=== PATIENT | female | born 1930 | race Caucasian/White ===

== ENCOUNTER 2016-12-06 15:26 | Inpatient (IN) | payer MEDICARE, OTHER ==
[~2016-12-06] VITALS: Ht 142.2 cm; Wt 47.5 kg
[~2016-12-06 15:26] MED LIST: AMLO5TAB2 PO; ASPI1TAB73 PO; CHOL1CAP6 PO; CYAN1TAB24 PO; HYDR-3533 PO
[2016-12-12 06:05] VITALS: BP 190/108; PULSE 98; RESP 18; TEMP 98.1; O2SAT 97
[2016-12-12] MEDS ORDERED: METOPROLOL TARTRATE 25 MG TAB PO PRN (06:45)
[2016-12-12] MEDS ORDERED: VANCOMYCIN 1,000 MG/NS 250 ML IV SCH ×2 (06:45)
[2016-12-12] MEDS ORDERED: SODIUM CHLORID 0.9% 500 ML IV PRN (06:45)
[2016-12-12] MEDS ORDERED: POVIDONE IODINE 5% (ANTISEPSIS KIT) 4 APPLICATIONS EACH NARE PRN (06:45)
[2016-12-12] MEDS ORDERED: LACTATED RINGER'S 1000 ML IV PRN (06:45)
[2016-12-12] MEDS ORDERED: CHLORHEXIDINE GLUCONATE 2 % 1 PACK (2 CLOTHS) TOPICAL PRN (06:45)
[2016-12-12] MEDS ORDERED: INSULIN HUMAN REGULAR 1,000 UNITS/10 ML VIAL SQ PRN (06:45)
[2016-12-12] MEDS ORDERED: SODIUM CHLOR 0.9% 1000 ML INJ 1,000 ML IV SCH (06:45)
[2016-12-12] MEDS ORDERED: VANCOMYCIN HCL 1000 MG VIAL ONE (07:03)
[2016-12-12] MEDS ORDERED: BUPIVACAINE/EPINEPHRINE 0.5% 50 ML VIAL ONE (07:03)
[2016-12-12] MEDS ORDERED: THROMBIN (TOPICAL) 5,000 UNIT VIAL ONE (07:03)
[2016-12-12] MEDS ORDERED: GELFOAM SIZE 100 ONE (07:03)
[2016-12-12] MEDS ORDERED: MULTTAB67 PO (07:27)
[2016-12-12] MEDS ORDERED: CALC1TAB87 PO (07:27)
[2016-12-12] MEDS ORDERED: fentaNYL CITRATE 250 MCG/5 ML AMP ONE (08:32)
[2016-12-12] MEDS ORDERED: ARTIFICIAL TEARS OPTH OINT 3.5 APPLIC/3.5 GM TUBO ONE (08:32)
[2016-12-12] MEDS ORDERED: MIDAZOLAM HCL 2 MG/2 ML VIAL ONE (08:32)
[2016-12-12] MEDS ORDERED: ACETAMINOPHEN 1000 MG/100 ML VIAL IV ONE (08:32)
[2016-12-12] MEDS ORDERED: KETAMINE HCL 500 MG/5 ML VIAL ONE (08:41)
[2016-12-12] MEDS: NS + KCL 20 MEQ INJ 1,000 ML IV SCH ×2 (12:12→22:40)
[2016-12-12] MEDS ORDERED: ACETAMINOPHEN 325 MG TAB PO PRN (12:15)
[2016-12-12] MEDS ORDERED: MENTHOL LOZENGE BUCCAL PRN (12:15)
[2016-12-12] MEDS ORDERED: PROCHLORPERAZINE INJ 10 MG/2 ML VIAL IM PRN (12:15)
[2016-12-12] MEDS ORDERED: CYCLOBENZAPRINE HCL 10 MG TAB PO PRN (12:15)
[2016-12-12] MEDS ORDERED: ACETAMINOPHEN/HYDROcodone 325 MG/10 MG TAB PO PRN (12:15)
[2016-12-12] MEDS ORDERED: MAGNESIUM HYDROXIDE SUSP 30 ML CUP PO PRN (12:15)
[2016-12-12] MEDS ORDERED: cloNIDine HCL 0.1 MG TAB PO PRN (12:15)
[2016-12-12] MEDS ORDERED: MORPHINE SULFATE 4 MG/ML INJ IV PRN (12:15)
[2016-12-12] MEDS ORDERED: ZOLPIDEM TARTRATE 5 MG TAB PO PRN (12:15)
[2016-12-12] MEDS ORDERED: RESP: ALBUTEROL 2.5 MG/3 ML NEB (PRN) NEB (12:15)
[2016-12-12] MEDS ORDERED: SODIUM CHLORIDE 0.9% FLUSH 10 ML FLUSH IV FLUSH PRN (12:15)
[2016-12-12] MEDS ORDERED: ALUMINUM/MAGNESIUM/SIMETH 30 ML CUP PO PRN (12:15)
[2016-12-12] MEDS ORDERED: SUGAMMADEX SODIUM 200 MG/2 ML VIAL IV PUSH ONE ×2 (12:16)
--- NOTE | 2016-12-12 12:20 | PD.OP ---
Mervin Guevara MD Operative Report Date of Surgery: Dec 12, 2016 Preoperative Diagnosis: C2 type II odontoid fracture Postoperative Diagnosis: Same Procedure: Posterior cervical C1-2 autograft fusion; C1-2 sublaminar Cory cable fixation ; left iliac crest autograft harvest; HALO placement Anesthesia: Gen. endotracheal by Dru Prajapati Surgeon: Rinku Clayton M.D. Head Mixer(s): Mellisa Villanueva Operation and Findings: Following administration of general endotracheal anesthesia, vancomycin 1 g was administered intravenously and Almeida catheter placed along with sequential compression devices for DVT prophylaxis. Neck was maintained in neutral position a Chester J collar during the intubation. Bifrontal and occipital regions were then shaved and prepped with Betadine solution and infiltrated with 1% lidocaine with epinephrine solution. The halo ring was then placed and the pins tightened to 8 pounds of torque pressure. Patient was then log roll in the prone position on chest rolls on Alvino table in the halo connected to the Cutler headrest. All pressure points adequately padded and the collar was then removed. The posterior cervical occipital region was then shaved along the left iliac crest area and prepped it with the ChloraPrep and sterilely draped with Ioban and the usual draping. A lateral C-spine fluoroscopy obtained to confirm the alignment of the dens relative to the body. Posterior cervical region was then infiltrated with 0.5% Marcaine with epinephrine solution and the skin incision overlying the C1-C2 level then made extending down to the fascia and then used in a subperiosteal plane the screw attachment posterior arch of C1 and C2 spinous process and lamina detached. Cerebellar retractors were used for exposure. The inferior portion the C1 posterior arch and spare portion of the C2 spinous process and lamina were decorticated with a drill bit. A Ocry double cable wire wasn't tunneled under the C1 lamina and looped underneath the C2 spinous process. Incision over the left iliac crest was then made after infiltrating the skin with 0.5% Marcaine with epinephrine solution extending down to the fascia. The fascia and musculature attachments of the louisa were detached and cerebellar retractor used for exposure. With an osteotome a tricortical iliac crest autograft was then harvested. Gelfoam and thrombin used for hemostasis at the iliac crest harvest site and the areas and copiously irrigated with antibiotic solution. The tricortical allograft was then contoured to fit in the C1-C2 interspace and this was then locked in place with the Cory cables providing stabilization fusion at the C1-2 level. The area was then copiously irrigated with with antibiotic solution. The retractors removed and the muscle and fascia proximal using 2-0 Vicryl Sutures. 3-0 Vicryl subcuticular interrupted sutures also placed and final skin closure was with ivan. The left iliac crest region was also approximated with the 2-0 Vicryl for the fascia and then 3-0 Vicryl subcuticular stitches and then final skin closure with ivan. Sterile dressings were then applied. Patient placed in a halo vest which is secured to the halo ring with the rods and locked in place. She was turned in the supine position and extubated. Cervical spine x-ray revealed C1-2 restored alignment and good position of the construct. All sponge and needle count was correct at the end of the procedure and estimated blood loss was about 50 cc. She was then taken to recovery room in stable condition. Rinku Clayton MD Dec 12, 2016 12:20
[2016-12-12] MEDS ORDERED: DO NOT ADM ANY ANTICOAGULANT DRUGS PRN (12:24)
[2016-12-12] MEDS ORDERED: *morphine SULFATE 8 MG/ML PERIprocedure ONLY ONE (12:27)
--- NOTE | 2016-12-12 14:07 | RADRPT ---
EXAM DATE/TIME: 12/12/2016 10:37 [facility] COMPARISON: No previous studies available for comparison. INDICATIONS : Post-op C1-C2 posterior cervical fusion. MEDICAL HISTORY : None. SURGICAL HISTORY : None. ENCOUNTER: Initial ACUITY: 1 day PAIN SCORE: Non-responsive. LOCATION: neck FINDINGS: A single lateral view of the cervical spine was performed. Fixation wires have been placed across the posterior ring of C1 and spinous process of C2. C1 and C2 vertebral bodies appear satisfactory align ed. 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 CONCLUSION: Satisfactory postoperative appearance following posterior fixation at C1-2. Renaldo Bose MD on December 12, 2016 at 14:03 Board Certified Radiologist. This report was verified electronically.
[2016-12-12 16:00] VITALS: BP 126/81; PULSE 93; RESP 18; TEMP 96.3; O2SAT 90
[2016-12-12] MEDS: ACETAMINOPHEN/HYDROcodone 325 MG/10 MG TAB PO PRN ×2 (16:47→22:39)
[2016-12-12] MEDS: ONDANSETRON HCL 4 MG/2 ML VIAL IV PUSH PRN (16:47)
[2016-12-12 20:17] VITALS: BP 119/75; PULSE 101; RESP 18; TEMP 96.7; O2SAT 92
[2016-12-12] MEDS: SODIUM CHLORIDE 0.9% FLUSH 10 ML FLUSH IV FLUSH SCH (21:00)
[2016-12-12] MEDS: amLODIPine BESYLATE 5 MG TAB PO SCH (22:40)
[2016-12-12] MEDS: DOCUSATE SODIUM 100 MG CAP PO SCH (22:40)
[2016-12-13] VITALS (10 sets, daily range): BP systolic 126–164; BP diastolic 69–91; PULSE 78–95; RESP 16–18; TEMP 96.7–98.2; O2SAT 92–96
[2016-12-13] MEDS: ACETAMINOPHEN/HYDROcodone 325 MG/10 MG TAB PO PRN ×5 (04:12→20:07)
[2016-12-13] MEDS: DOCUSATE SODIUM 100 MG CAP PO SCH ×2 (08:10→20:07)
[2016-12-13] MEDS: CALCIUM/VITAMIN D 250 MG/125 U TAB PO SCH (08:10)
[2016-12-13] MEDS: MULTIVITAMIN TAB PO SCH (08:11)
[2016-12-13] MEDS: CHOLECALCIFEROL (VIT D3) 1000 UNIT TAB PO SCH (08:11)
[2016-12-13] MEDS: PANTOPRAZOLE SOD 40 MG DELAYED RELEASE TAB PO SCH (08:11)
[2016-12-13] MEDS: CYANOCOBALAMIN 1,000 MCG TAB PO SCH (08:11)
[2016-12-13] MEDS: SODIUM CHLORIDE 0.9% FLUSH 10 ML FLUSH IV FLUSH SCH ×2 (08:12→20:07)
[2016-12-13] MEDS: POLYETHYLENE GLYCOL 17 GM PKG PO SCH (08:13)
--- NOTE | 2016-12-13 09:12 | HHI.NSPN ---
(Kwame Lopez) History Chief Complaint: Pin site discomfort (Kwame Lopez) Interval History 12/13/16: Pt s/p posterior cervical C1-2 autograft fusion; C1-2 sublaminar Cory cable fixation; left iliac crest autograft harvest; HALO placement on . She is overall doing well. Complains of some pin site discomfort. States neck pain controlled. No radiculopathy or paresthesias in UEs. (Kwame Lopez) Review of Systems General: Negative for: fever, chills, insomnia Respiratory: Negative for: shortness of breath, cough, sputum Cardiovascular: Negative for: chest pain Gastrointestinal: Negative for: nausea, vomitting, diarrhea, constipation ( Kwame Lopez) Exam Results Vital Signs Date Time Temp Pulse Resp B/P Pulse Ox O2 Delivery O2 Flow Rate FiO2 12/13/16 08:25 Room Air 12/13/16 08:00 97.4 94 16 127/79 92 12/13/16 00:56 21 12/12/16 14:25 3 Intake and Output 12/12/16 12/12/16 12/13/16 08:00 16:00 00:00 Intake Total 1594 ml 1044 ml Output Total 1250 ml 500 ml Balance 344 ml 544 ml (Kwame Lopez) Physical Examination GENERAL: Patient resting comfortably in bed with Halo intact. HEAD: Pin sites clean without signs of infection. EYES: Pupils equal. Sclera non icteric. RESPIRATORY: CTA Bilaterally HEART: NSR Normal S1 and S2 ABDOMEN: Soft Positive BS SKIN: No cyanosis or erythema. Bandages dry. MUSCLE: Patient moves all 4 extremities, 5/5 strength in UEs and LEs. She states she ambulated short distance yesterday. NEUROLOGIC: Patient is awake and alert. Speech is clear and appropriate. Follows commands well. Sensation intact in extremities, comprehension is good. (Kwame Lopez) Lab, Micro, Other Results Last Impressions Cervical Spine X-Ray 12/12/16 0000 Signed Impressions: Service Date/Time: November 10:37 - CONCLUSION: Satisfactory postoperative appearance following posterior fixation at C1-2. Renaldo Bose MD 12/12/16 12/12/16 12/13/16 15:00 23:00 07:00 Intake Total 1594 ml 1044 ml 822 ml Output Total 1250 ml 500 ml 150 ml Balance 344 ml 544 ml 672 ml Intake Oral 360 ml 240 ml IV Total 94 ml 684 ml 582 ml Other 1500 ml Output Urine Total 1050 ml 500 ml 150 ml Estimated Blood Loss 200 ml # Voids 2 # Bowel Movements 0 0 (Kwame Lopez) Medical Decision Making Impression and Plan A: 86 y/o FM s/p posterior cervical C1-2 autograft fusion; C1-2 sublaminar Cory cable fixation; left iliac crest autograft harvest; HALO placement, pod # 1. P: Continue with pain control Continue with Rehab efforts. Discontinue Almeida tomorrow am. (Kwame Lopez) Attending Statement The exam, history, and the medical decision-making described in the above note were completed with the assistance of the mid-level provider. I reviewed and agree with the findings presented. I attest that I had a [id number] encounter with the patient on the same day, and personally performed and documented my assessment and findings in the medical record. Overall she is doing well postoperatively. Discussed with the daughter who is a nurse practitioner and she feels that the patient is not safe to be discharged home. We'll plan on inpatient rehabilitation placement. (Rinku Clayton MD) Kwame Lopez Dec 13, 2016 09:12 Rinku Clayton MD Dec 13, 2016 11:37
[2016-12-13] MEDS ORDERED: HYDR-3535 PO (11:27)
[2016-12-13] MEDS: NS + KCL 20 MEQ INJ 1,000 ML IV SCH (11:39)
[2016-12-13] MEDS: ONDANSETRON HCL 4 MG/2 ML VIAL IV PUSH PRN ×2 (11:42→18:18)
[2016-12-13] MEDS: amLODIPine BESYLATE 5 MG TAB PO SCH (20:07)
[2016-12-14] MEDS: ACETAMINOPHEN/HYDROcodone 325 MG/10 MG TAB PO PRN ×3 (00:23→10:01)
[2016-12-14 04:25] VITALS: BP 128/77; PULSE 79; RESP 18; TEMP 96.7; O2SAT 92
[2016-12-14 08:00] VITALS: BP 133/88; PULSE 87; RESP 17; TEMP 96.8; O2SAT 93
[2016-12-14] MEDS: PANTOPRAZOLE SOD 40 MG DELAYED RELEASE TAB PO SCH (08:34)
[2016-12-14] MEDS: CYANOCOBALAMIN 1,000 MCG TAB PO SCH (08:34)
[2016-12-14] MEDS: CALCIUM/VITAMIN D 250 MG/125 U TAB PO SCH (08:34)
[2016-12-14] MEDS: DOCUSATE SODIUM 100 MG CAP PO SCH (08:34)
[2016-12-14] MEDS: SODIUM CHLORIDE 0.9% FLUSH 10 ML FLUSH IV FLUSH SCH (08:34)
[2016-12-14] MEDS: CHOLECALCIFEROL (VIT D3) 1000 UNIT TAB PO SCH (08:34)
[2016-12-14] MEDS: MULTIVITAMIN TAB PO SCH (08:34)
[2016-12-14] MEDS: POLYETHYLENE GLYCOL 17 GM PKG PO SCH (08:36)
[2016-12-14] MEDS ORDERED: ASPIRIN EC 81 MG TABEC PO SCH (09:00)
--- NOTE | 2016-12-14 11:20 | HHI.NSPN ---
(Nadira Tam) Note Status Status: Progress Note (Nadira Tam) Interval History Interval History 12/13/16: Pt s/p posterior cervical C1-2 autograft fusion; C1-2 sublaminar Cory cable fixation; left iliac crest autograft harvest; HALO placement on . She is overall doing well. Complains of some pin site discomfort. States neck pain controlled. No radiculopathy or paresthesias in UEs. 12/14/16: doing well, family in room. pain controlled, eager to go to rehab. no new complaints. (Nadira Tam) Labs, Micro, & Vital Signs Results Date Time Temp Pulse Resp B/P Pulse Ox O2 Delivery O2 Flow Rate FiO2 12/14/16 08:00 96.8 87 17 133/88 93 12/14/16 04:25 96.7 79 18 128/77 92 12/13/16 23:05 96.8 78 17 135/81 92 12/13/16 19:22 98.2 84 18 158/77 93 12/13/16 18:55 Room Air 12/13/16 16:00 96.7 83 16 164/86 93 12/13/16 15:53 96 21 12/13/16 14:22 96 12/13/16 12:00 97.7 84 16 136/69 93 12/14/16 07:00 Intake Total 2280 ml Output Total 1275 ml Balance 1005 ml Constitutional Vital Signs Date Time Temp Pulse Resp B/P Pulse Ox O2 Delivery O2 Flow Rate FiO2 12/14/16 08:00 96.8 87 17 133/88 93 12/14/16 04:25 96.7 79 18 128/77 92 12/13/16 23:05 96.8 78 17 135/81 92 12/13/16 19:22 98.2 84 18 158/77 93 12/13/16 18:55 Room Air 12/13/16 16:00 96.7 83 16 164/86 93 12/13/16 15:53 96 21 12/13/16 14:22 96 12/13/16 12:00 97.7 84 16 136/69 93 12/14/16 07:00 Intake Total 2280 ml Output Total 1275 ml Balance 1005 ml (Nadira Tam) Review of Systems/Exam Exam Ms. Mcgill is alert. Speech is fluent. Halo brace intact. Frontal pins with Xeroform dressing. Side pins clean and dry. Cranial nerve examination: pupils to be equal, round and reactive to light. Extra-ocular movements are intact. Facial motor and sensory function are normal and symmetrical. Muscle strength is normal in all muscle groups of both upper and lower extremities. Sensory examination is intact to light touch in both the upper and lower extremities. (Nadira Tam) Medications Current Medications Current Medications Medications (Trade) Dose Ordered Sig/Halley Route PRN Reason Start Time Stop Time Status Last Admin Dose Admin Amlodipine Besylate (Norvasc) 5 mg HS PO 12/12/16 21:00 12/13/16 20:07 Cholecalciferol (Vitamin D3) 1,000 units DAILY PO 12/13/16 09:00 12/14/16 08:34 Cyanocobalamin (Vitamin B12) 5,000 mcg DAILY PO 12/13/16 09:00 12/14/16 08:34 Multivitamins 1 tab 1 tab DAILY PO 12/13/16 09:00 12/14/16 08:34 Potassium Chloride/Sodium Chloride (NS + KCl 20 Meq Inj) 1,000 ml @ 80 mls/hr [id number] IV 12/12/16 12:12 12/12/16 22:40 Sodium Chloride (NS Flush) 2 ml UNSCH PRN IV FLUSH FLUSH AFTER USING IV ACCESS 12/12/16 12:15 Sodium Chloride (NS Flush) 2 ml BID IV FLUSH 12/12/16 21:00 12/14/16 08:34 Docusate Sodium (Colace) 100 mg BID PO 12/12/16 21:00 12/14/16 08:34 Magnesium Hydroxide (Milk Of Magnesia Liq) 30 ml DAILY PRN PO CONSTIPATION 12/12/16 12:15 Al Hydrox/Mg Hydrox/Simethicone (Mag-Al Plus Susp Liq) 30 ml Q6H PRN PO DYSPEPSIA 12/12/16 12:15 Pantoprazole Sodium (Protonix) 40 mg DAILY PO 12/13/16 09:00 12/14/16 08:34 Acetaminophen/ Hydrocodone Bitart ([place] 10-325 Mg) 1 tab Q4H PRN PO PAIN SCALE 1 TO 5 12/12/16 12:15 12/14/16 10:01 Acetaminophen/ Hydrocodone Bitart ([place] 10-325 Mg) 2 tab Q4H PRN PO PAIN SCALE 6 TO 10 12/12/16 12:15 Morphine Sulfate (Morphine Inj) 2 mg Q2H PRN IV breakthrough pain> 6 12/12/16 12:15 Cyclobenzaprine HCl (Flexeril) 10 mg Q8H PRN PO MUSCLE SPASM 12/12/16 12:15 12/13/16 18:18 Clonidine (Catapres) 0.1 mg Q6H PRN PO SYS BP GREATER THAN 170 MMHG 12/12/16 12:15 Acetaminophen (Tylenol) 650 mg Q4H PRN PO TEMPERATURE > 101.5 F 12/12/16 12:15 Menthol ([place] Kevin) 1 lozenge UNSCH PRN BUCCAL SORE THROAT 12/12/16 12:15 Zolpidem Tartrate (Ambien) 5 mg HS PRN PO INSOMNIA 12/12/16 12:15 Ondansetron HCl (Zofran Inj) 4 mg Q6HR PRN IV PUSH nausea 12/12/16 12:15 12/13/16 18:18 Prochlorperazine Edisylate (Compazine Inj) 10 mg Q6H PRN IM nausea if zofran ineffective 12/12/16 12:15 Polyethylene Glycol (Miralax) 17 gm DAILY PO 12/13/16 09:00 12/14/16 08:36 Calcium/Vitamin D (Oscal-D 250-125) 500 mg DAILY PO 12/13/16 09:00 12/14/16 08:34 (Nadira Tam) Medical Decision Making MDM Remarks 86 y/o FM s/p posterior cervical C1-2 autograft fusion; C1-2 sublaminar Cory cable fixation; left iliac crest autograft harvest; HALO placement, neurologically stable (Nadira Tam) Plan Plan Remarks doing well[facility] dw family in room (Nadira Tam) Attending Statement The exam, history, and the medical decision-making described in the above note were completed with the assistance of the mid-level provider. I reviewed and agree with the findings presented. I attest that I had a [id number] encounter with the patient on the same day, and personally performed and documented my assessment and findings in the medical record. (Norman Lewis MD) Nadira Tam Dec 14, 2016 11:20 Norman Lewis MD Dec 16, 2016 08:38
[2016-12-14 12:00] VITALS: BP 121/73; PULSE 92; RESP 17; TEMP 98; O2SAT 90
[2016-12-14] MEDS: NS + KCL 20 MEQ INJ 1,000 ML IV SCH (14:12)
== END 2016-12-14 15:36 | DRG 473 ==
LOC: HSDI 12-12 05:48 → N06A 12-12 14:42
PROVIDERS: ADMIT Neurological Surgery; ATTEND Neurological Surgery
PROC: 0QB30ZZ Excision of Left Pelvic Bone, Open Approach (ICD-10-PCS; 2016-12-12)
PROC: 2W60X0Z Traction of Head using Traction Apparatus (ICD-10-PCS; 2016-12-12)
PROC: 0RG1071 Fusion of Cervical Vertebral Joint with Autologous Tissue Substitute, Posterior Approach, Posterior Column, Open Approach (ICD-10-PCS; principal; 2016-12-12 10:00)
DX: S12.111A Posterior displaced Type II dens fracture, initial encounter for closed fracture (principal); I10 Essential (primary) hypertension; X58.XXXA Exposure to other specified factors, initial encounter; K21.9 Gastro-esophageal reflux disease without esophagitis; H40.9 Unspecified glaucoma; F17.210 Nicotine dependence, cigarettes, uncomplicated; N32.81 Overactive bladder
CPT/HCPCS: 72020; 76000; 86850; 86900; 86901; 86920; 94150; J0131; J0690; J2250; J2270; J2405; J3010; J3370; J3480; J7050; J7120; L0150; L0172; L0810

== ENCOUNTER → 2016-12-09 | Outpatient (CLI) | payer MEDICARE, OTHER ==
[~2016-12-09] MED LIST changes: +CALC1TAB87 PO; +HYDR-3535 PO; +MULTTAB67 PO; +TYLE325T PO
[2016-12-09 12:25] LABS: AUTOMATED NEUTROPHIL # 2.5 TH/MM3 (1.8-7.7); BASOPHIL % 0.7 % (0.0-2.0); EOSINOPHIL # 0.1 TH/MM3 (0-0.4); EOSINOPHIL % 1.5 % (0.0-4.0); HEMATOCRIT 39.4 % (35.0-46.0); HEMO FLAGS DIFF FINAL; LYMPH % 35.4 % (9.0-44.0); LYMPHOCYTE # 1.7 TH/MM3 (1.0-4.8); MEAN CELL VOLUME 100.4 FL (80.0-100.0); MEAN CORPUSCULAR HEMOGLOBIN 33.8 PG (27.0-34.0); MEAN CORPUSCULAR HGB CONC 33.7 % (32.0-36.0); MONO % 10.5 % (0.0-8.0); NEUT % 51.9 % (16.0-70.0); PLATELET COUNT 326 TH/MM3 (150-450); RED BLOOD COUNT 3.92 MIL/MM3 (4.00-5.30); RED CELL DISTRIBUTION WIDTH 13.9 % (11.6-17.2); WHITE BLOOD COUNT 4.8 TH/MM3 (4.0-11.0)
[2016-12-09 12:27] LABS: APTT (PATIENT) 23.1 SEC (24.3-30.1); INTERNATIONAL NORMALIZED RATIO 0.9 RATIO; PROTHROMBIN TIME - PATIENT 9.9 SEC (9.8-11.6)
[2016-12-09 12:47] LABS: ANION GAP 7 MEQ/L (5-15); AST (GOT) 25 U/L (15-37); BICARBONATE 32.2 MEQ/L (21.0-32.0); BLOOD UREA NITROGEN 13 MG/DL (7-18); CHLORIDE 103 MEQ/L (98-107); GLOMERULAR FILTRATION RATE 93 ML/MIN (>89); GLUCOSE,FASTING 91 MG/DL (74-99); POTASSIUM 3.7 MEQ/L (3.5-5.1); SODIUM (NA) 142 MEQ/L (136-145)
[2016-12-09 12:49] LABS: ALKALINE PHOSPHATASE 78 U/L (45-117); ALT (GPT) 20 U/L (10-53); TOTAL BILIRUBIN ADULT 0.8 MG/DL (0.2-1.0)
[2016-12-09 13:31] LABS: BLOOD, URINE NEG (NEG); COMMENT (UR) CULT NOT INDICATED; CULTURE IF INDICATED CULT NOT INDICATED; GLUCOSE,URINE NEG (NEG); KETONE, URINE NEG (NEG); NITRITE,URINE NEG (NEG); PH, URINE 7.5 (5.0-8.5); SQUAMOUS EPITHELIAL CELL URINE <1 /hpf (0-5); URINE COLOR LIGHT-YELLOW (YELLW/STRAW)
--- NOTE | 2016-12-09 13:48 | RADRPT ---
EXAM DATE/TIME: 12/09/2016 12:36 [facility] COMPARISON: No previous studies available for comparison. INDICATIONS : Evaluate for pneumonia, pneumotorax or communicable disease. Pre op neck surgery. MEDICAL HISTORY : None. SURGICAL HISTORY : None. ENCOUNTER: Initial ACUITY: 1 day PAIN SCORE: 0/10 LOCATION: Bilateral chest FINDINGS: PA and lateral views of the chest demonstrate the lungs to be symmetrically aerated without evidence of mass, infiltrate or effusion. The cardiomediastinal contours are unremarkable. Degenerative flores ges are present in the thoracic spine. Previous lower lumbar spine surgery is noted. CONCLUSION: Negative for an acute process. Ignacio Aleman MD FACR on December 09, 2016 at 13:45 Board Certified Radiologist. This report was verified electronically.
--- NOTE | 2016-12-10 17:03 | EKG ---
Date Performed: 12/09/2016 Time Performed: 11:50:35 PTAGE: 86 years EKG: Sinus rhythm POSSIBLE LEFT ATRIAL ENLARGEMENT LOW QRS VOLTAGE IN PRECORDIAL LEADS POSSIBLE ANTERIOR MYOCARDIAL IN FARCTION, PROBABLY OLD LEFT ANTERIOR FASCICULAR BLOCK BORDERLINE ECG PREVIOUS TRACING 09/23/2011 13.29.18 DOCTOR: Milton Stubbs Interpretating Date/Time 12/10/2016 17:02:39
== END ==
LOC: CPRE 11:25
PROVIDERS: ATTEND Neurological Surgery
DX: Z01.812 Encounter for preprocedural laboratory examination (principal); Z01.810 Encounter for preprocedural cardiovascular examination; Z01.811 Encounter for preprocedural respiratory examination; S12.110A Anterior displaced Type II dens fracture, initial encounter for closed fracture; R94.31 Abnormal electrocardiogram [ECG] [EKG]; X58.XXXA Exposure to other specified factors, initial encounter
CPT/HCPCS: 36415; 71020; 80053; 81001; 85025; 85610; 85730; 93005